=== PATIENT | male | born 1965 | race Caucasian/White ===

== ENCOUNTER 2022-02-24 14:43 | Outpatient (CLI) | payer OTHER, SELFPAY ==
[2022-02-24 15:07] LABS: Hemoglobin A1C* 9.9 % (0-5.6)
[2022-02-24 21:46] LABS: Albumin* 4.4 g/dL (3.3-5.0)
[2022-02-24 21:47] LABS: Chloride* 97 mmol/L (96-114); Potassium* 4.5 mmol/L (3.6-5.1); Sodium* 136 mmol/L (135-149)
[2022-02-24 21:49] LABS: Carbon Dioxide* 27 mmol/L (20-32); Cholesterol* 143 mg/dL (90-199); Creatinine* 0.7 mg/dL (0.5-1.5); Estimated Glomerular Filt Rate 109 ml/min
[2022-02-24 21:50] LABS: Alanine Aminotransferase* 17 U/L (4-50); Alkaline Phosphatase* 91 U/L (40-150); Aspartate Amino Transferase* 16 U/L (12-35); Bilirubin Total* 0.3 mg/dL (0.1-1.5); Blood Urea Nitrogen* 13 mg/dL (7-30); Calcium* 10.1 mg/dL (8.4-10.6); Glucose* 264 mg/dL (60-115); HDL Cholesterol* 32 mg/dL (>=40); LDL Cholesterol Calculated 39 mg/dL (<100); Total Protein* 7.2 g/dL (6.0-8.3); Triglycerides* 362 mg/dL (40-149)
[2022-02-24 22:15] LABS: PSA Screen* 0.66 ng/mL (0.10-4.00)
[2022-02-24 22:57] LABS: Creatinine Urine 39.8 mg/dL
[2022-02-24 23:00] LABS: Microalbumin Creatinine Ratio 420 mg/g (0-30); Microalbumin Urine 17 mg/dL
== END 2022-02-24 14:44 | disposition home or self-care (01) ==
PROVIDERS: PCP Nurse Practitioner Family; Visit Provider Nurse Practitioner Family
DX: Z00.00 Encounter for general adult medical examination without abnormal findings (principal); E78.5 Hyperlipidemia, unspecified; E11.9 Type 2 diabetes mellitus without complications; Z51.81 Encounter for therapeutic drug level monitoring; Z12.5 Encounter for screening for malignant neoplasm of prostate
CPT/HCPCS: 36415; 80053; 80061; 82043; 82570; 83036; 84153